=== PATIENT | male | born 2000 | race Caucasian/White ===

== ENCOUNTER 2023-11-12 10:02 | Emergency (ER) | payer SELFPAY ==
[2023-11-12 10:09] VITALS: BMI 18.1
[2023-11-12] MEDS ORDERED: ALBUTEROL SO4 2.5/IPRATROPIUM 0.5 INH SOL 3 ML VIAL.NEB. NEB ONE ×3 (10:11→10:46)
[2023-11-12] MEDS ORDERED: methylPREDNISolone NA SUCC 125 MG/2 ML VIAL ONE (10:44)
[2023-11-12] MEDS: ALBUTEROL SO4 2.5/IPRATROPIUM 0.5 INH SOL 3 ML VIAL.NEB. NEB SCH (10:45)
[2023-11-12] MEDS: methylPREDNISolone NA SUCC 125 MG/2 ML VIAL IVPUSH ONE (11:00)
[2023-11-12 11:13] LABS: BASO % 0.8 % (0-2.0); EOS % 3.7 % (0-4.5); HEMATOCRIT 50.2 % (35.4-49); LYMPH % 14.9 % (8-40); MCH 31.3 pg (25.7-33.7); MCHC 33.9 g/dl (32.0-35.9); MEAN CELL VOLUME 92.3 fl (80-96); MEAN PLT VOLUME 9.1 fl (7.5-11.1); MONO % 5.1 % (3.8-10.2); NEUT % 75.5 % (42.8-82.8); PLATELET COUNT 205 10^3/uL (134-434); RBC 5.43 M/mm3 (4.00-5.60); RDW 12.7 % (11.9-15.9)
[2023-11-12 11:29] LABS: POTASSIUM 4.1 mmol/L (3.5-5.1)
[2023-11-12 11:32] LABS: BLOOD UREA NITROGEN 9.2 mg/dL (7-18); CALCIUM 9.2 mg/dL (8.5-10.1); MAGNESIUM 2.1 mg/dL (1.8-2.4)
[2023-11-12 11:37] LABS: BILIRUBIN,TOTAL 0.9 mg/dL (0.2-1); TOT PROT 7.1 g/dl (6.4-8.2)
[2023-11-12 12:31] VITALS: BP 116/62; PULSE 100; RESP 18; TEMP 98.6
== END 2023-11-12 12:25 | disposition home or self-care (01) ==
LOC: JER 10:02
PROC: 3E033GC Introduction of Other Therapeutic Substance into Peripheral Vein, Percutaneous Approach (ICD-10-PCS; principal; 2023-11-12)
PROC: 3E0F7GC Introduction of Other Therapeutic Substance into Respiratory Tract, Via Natural or Artificial Opening (ICD-10-PCS; 2023-11-12)
DX: R06.02 Shortness of breath (principal); J45.901 Unspecified asthma with (acute) exacerbation; Z20.822 Contact with and (suspected) exposure to COVID-19
CPT/HCPCS: 0241U-QW; 36415; 71045-TC-FY; 80053; 83735; 85025; 93005; 93010; 99285-25

== ENCOUNTER 2024-09-27 09:17 | Emergency (ER) | payer SELFPAY ==
[2024-09-27 09:21] VITALS: BP 134/73; PULSE 91; RESP 18; TEMP 97.8; BMI 20.3
[2024-09-27] MEDS ORDERED: predniSONE 20 MG TABLET (UD) ONE (09:22)
[2024-09-27] MEDS ORDERED: diphenhydrAMINE HCL 25 MG CAPSULE (FP) PO ONE (09:22)
[2024-09-27] MEDS ORDERED: FAMOTIDINE 20 MG TABLET ONE (09:22)
[2024-09-27] MEDS: FAMOTIDINE 10 MG TABLET PO ONE (09:26)
[2024-09-27] MEDS: diphenhydrAMINE HCL 50 MG CAPSULE PO ONE (09:27)
[2024-09-27] MEDS: predniSONE 20 MG TABLET (UD) PO ONE (09:28)
[2024-09-27] MEDS ORDERED: predniSONE 20 MG TABLET (UD) PO SCH (10:00)
== END 2024-09-27 10:17 | disposition home or self-care (01) ==
LOC: FER 09:17
DX: L50.0 Allergic urticaria (principal)
CPT/HCPCS: 99283-25